=== PATIENT | male | born 1995 | race African-American/Black ===

== ENCOUNTER 2024-01-19 00:45 | Emergency (ER) | payer MEDICAID ==
[~2024-01-19] VITALS: Ht 172.7 cm; Wt 64.0 kg
[2024-01-19 00:54] VITALS: BP 115/85; PULSE 69; RESP 18; TEMP 98.4; O2SAT 99
[2024-01-19] MEDS: TETANUS, DIPHTHERIA, PERTUSSIS VAC/PF 0.5ML (>10YR OLD) IM ONE (03:17)
[2024-01-19] MEDS: ACETAMINOPHEN 325MG TABLET PO ONE (03:17)
[2024-01-19] MEDS ORDERED: AMOX1TAB16 MT (04:57)
[2024-01-19] MEDS ORDERED: NAPR-1074 MT (04:57)
[2024-01-19] MEDS: AMOXICILLIN/POTASSIUM CLAVULANATE 875/125MG TAB PO ONE (05:00)
== END 2024-01-19 05:30 | disposition home or self-care (01) ==
LOC: ER 01:01
DX: S02.831A Fracture of medial orbital wall, right side, initial encounter for closed fracture (principal); S20.211A Contusion of right front wall of thorax, initial encounter; Z00.00 Encounter for general adult medical examination without abnormal findings; Y04.0XXA Assault by unarmed brawl or fight, initial encounter; Y93.89 Activity, other specified; Y92.89 Other specified places as the place of occurrence of the external cause; Y99.8 Other external cause status
CPT/HCPCS: 70450; 70486; 71250; 90715; 90471; 99285; Z7610

== ENCOUNTER 2025-05-10 04:34 | Emergency (ER) | payer MEDICAID ==
[~2025-05-10] VITALS: Ht 175.3 cm; Wt 68.0 kg
[~2025-05-10 04:34] MED LIST: AMOX1TAB16 MT; NAPR-1074 MT
[2025-05-10 04:47] VITALS: O2SAT 100
[2025-05-10] MEDS ORDERED: IBUP-2028 MT (05:19)
[2025-05-10] MEDS ORDERED: CEPH500C2 MT (05:19)
[2025-05-10 05:50] VITALS: BP 123/76; PULSE 63; RESP 16; TEMP 36.6; O2SAT 99
== END 2025-05-10 05:52 | disposition home or self-care (01) ==
LOC: ER 04:53
DX: L08.9 Local infection of the skin and subcutaneous tissue, unspecified (principal); Z79.899 Other long term (current) drug therapy
CPT/HCPCS: 99283